=== PATIENT | female | born 1960 | race Caucasian/White ===

== ENCOUNTER → 2019-09-10 11:07 | Outpatient (CLI) | payer BC, SELFPAY | PROVIDERS: PCP Family Medicine; Visit Provider Family Medicine | DX: R42 Dizziness and giddiness (principal) | CPT/HCPCS: 93225; 93226 ==

== ENCOUNTER → 2019-10-01 12:18 | Outpatient (CLI) | payer BC, SELFPAY ==
--- NOTE | 2019-10-01 12:23 | XR_ITS ---
PROCEDURE: XR CHEST 2V CLINICAL HISTORY: tobacco user COMPARISON: CR TSP THORACIC SPINE-3V SWIMMERS from 06/17/2014 FINDINGS: The cardiomediastinal silhouette and pulmonary vascularity are within normal limits. The lungs are clear without infiltrates, suspicious nodules, or pleural effusions. There are postsurgical changes of the thoracic spine. There is kyphosis in the lower thoracic spine with a bone plate present from the left lateral approach at the T12 T11 and T10 region. A spacer device is present at the T11 position with kyphosis at that level. This is similar compared to 06/17/2014 thoracic spine film. There is a pectus excavatum deformity also similar compared to the previous exam. IMPRESSION: No acute findings. Dictated by: Sudhakar Freeman MD 10/01/2019 12:54 Sudhakar Freeman MD in [place] 10/01/2019 12:54
[2019-10-01 13:12] LABS: Basophils # 0.1 K/mm3 (0-0.2); Basophils % 0.5 % (0.1-2.0); Eosinophils # 0.1 K/mm3 (0.0-0.4); Hematocrit 39.8 % (37.0-47.0); Hemoglobin 13.2 g/dL (12.2-16.2); Lymphocytes # 2.1 K/mm3 (0.7-4.5); Lymphocytes % 19.4 % (10-50); Mean Corpuscular HGB Conc 33.2 g/dL (31.8-35.4); Mean Corpuscular Hemoglobin 31.4 pg (27.0-31.2); Mean Corpuscular Volume 94.4 fl (81-99); Mean Platelet Volume 7.7 fl (7.4-10.4); Monocytes # 0.4 K/mm3 (0.1-1.0); Neutrophils # 8.2 K/mm3 (1.8-7.8); Neutrophils % 75.1 % (37.0-80.0); Platelet Count 351 K/mm3 (142-424); Red Blood Count 4.21 M/mm3 (4.20-5.40); Red Cell Distribution Width 12.1 % (11.5-17.5); White Blood Count 10.9 K/mm3 (4.8-10.8)
[2019-10-01 14:01] LABS: Alanine Aminotransferase 16 U/L (12-78); Albumin Level 4.2 g/dl (3.5-5.0); Alkaline Phosphatase 77 U/L (38-126); Aspartate Amino Transferase 23 U/L (14-36); Bilirubin,Direct 0.1 mg/dl (0.0-0.4); Bilirubin,Indirect 0.2 mg/dL (0.0-0.9); Bilirubin,Total 0.3 mg/dl (0.2-1.3); Bilirubin,Unconjugated 0.2 mg/dL (0.0-1.1); Blood Urea Nitrogen 16 mg/dl (7-17); Calcium 9.9 mg/dl (8.4-10.2); Carbon Dioxide 30 mmol/L (22.0-30.0); Chloride 100 mmol/L (98-107); Estimated Glomerular Filt Rate 86 ml/min (>60); GFR (African American) 104 ML/MIN (>60); Glucose 92 mg/dl (74-100); Sodium 137 mmol/L (136-145); Total Protein,Serum 6.9 g/dl (6.3-8.2)
[2019-10-01 14:13] LABS: NT Pro Brain Natriuretic Pep. 121 pg/mL (0-125)
[2019-10-01 14:19] LABS: Free T4 (Free Thyroxine) 1.08 ng/dl (0.78-2.19)
[2019-10-01 14:34] LABS: Thyroid Stimulating Hormone 0.75 uIU/mL (0.465-4.68)
== END ==
PROVIDERS: PCP Family Medicine; Visit Provider Internal Medicine
DX: R42 Dizziness and giddiness (principal); R55 Syncope and collapse; R00.0 Tachycardia, unspecified; F17.200 Nicotine dependence, unspecified, uncomplicated
CPT/HCPCS: 36415; 71046; 80048; 80076; 83880; 84439; 84443; 85025

== ENCOUNTER → 2019-10-08 06:33 | Outpatient (CLI) | payer BC, SELFPAY ==
--- NOTE | 2019-10-08 06:34 | CA_ITS ---
APPROVED REPORT Exam: Pharmacologic Technologist: Chanel Taylor Ht: 5 ft 6 in Wt: 112 lbs BSA: 1.56 m2 HR: 51 bpm BP: 101/56 mmHg Medical History Medications: BisOPROL,,,,, DulOtetine,,,,, Stress Test Details Test: LEXISCAN HR Resting HR: 54 bpm Max Heart Rate (APMHR): 163 bpm Max HR Achieved: 124 bpm Target HR (85% APMHR): 138 bpm % of APMHR: 76 Recovery HR: 102 bpm BP Resting BP: 101.0/56.0 mmHg Max BP: 108.0/50.0 mmHg Recovery BP: 101.0/54.0 mmHg ECG Clinical Reason for Termination: Completed Protocol Exercise duration: 03:59 min Highest Stage Achieved: Stress ECG Conclusion Resting ECG: Normal sinus rhythm Symptoms: No chest pain Arrhythmias/Ectopy: None ST-T Changes: < 1.[address] segment changes Conclusion: Non-diagnostic Lexiscan stress test. Patient received the infusion without chest pain, ST segment changes or arrhythmias. See the nuclear report for further information. Test Summary REST 05:32 . . 54 . 101/ 56 . . Stage 1 . . . . . . . Myoview Injected Stage 1 01:00 . . 109 . . . . Stage 2 01:00 . . 120 . 93/ 56 . . Stage 3 01:00 . . 115 . 98/ 56 . . Stage 4 00:59 . . 110 . 98/ 53 . Stop exercise at 03:59 RECOVERY 01:00 . . 105 . . . . RECOVERY 02:00 . . 106 . . . . RECOVERY 03:00 . . 100 . 108/ 50 . . RECOVERY 04:00 . . 94 . 108/ 50 . . RECOVERY 05:00 . . 91 . 108/ 50 . . RECOVERY 05:40 . . 100 . 101/ 54 . . Electronically signed by : Toby Sanchez, 10/08/2019 18:24:16
--- NOTE | 2019-10-08 06:34 | CA_ITS ---
APPROVED REPORT EXAM: Comprehensive 2D, Doppler, and color-flow Echocardiogram Mat Machine Operator: Ariadna Gray RT(R) Ht: 5 ft 6 in Wt: 113lbs BSA: 1.57 BP: 99/69 mmHg Indications: smoker, fatigue, dizziness, syncope 2D Dimensions LVOT 1.54 cm (M/F) 1.5-2.5 M-Mode Dimensions RVDd 2.32 cm (0.9-2.6) LVDd 3.73 cm (3.5-5.7) LVDs 2.49 cm (3.5-5.7) IVSd 0.81 cm (0.6-1.1) PWd 0.74 cm (0.6-1.1) EF (Teich) 62.70% FS 33.20% EDV (Teich) 59.30 mL ESV (Teich) 22.10 mL LV Diastology E/A Ratio 2.92 Mitral Valve MV A Velocity 32.00 (40-130 cm/s) Left Ventricle Left atrium is normal size, left ventricle is normal size, there is no concentric left ventricular hypertrophy, visually estimated ejection fraction 55% with no regional wall motion abnormality. Diastolic parameters are within normal range. Right Ventricle Right atrium and right ventricular normal size and contractility. Aortic Valve Aortic valve is minimally thickened and fibrosed. There is no aortic stenosis or aortic insufficiency. Mitral Valve Mitral valve is grossly normal, there is mild mitral regurgitation. Tricuspid Valve Tricuspid valve is grossly normal, there is mild tricuspid regurgitation, tricuspid regurgitation jet velocity is inadequate for calculation of the right ventricular systolic pressure. Pulmonic Valve Pulmonic valve is poorly visualized. Great Vessels Aortic root is normal size. Pericardium No significant pericardial effusion noted. Conclusion 1. Normal left ventricular size, preserved left ventricular systolic function, visually estimated ejection fraction 55% with no regional wall motion abnormality, diastolic parameters are within normal range. 2. Mild mitral and tricuspid regurgitation. 3. No significant pericardial effusion noted. Electronically signed by : Toby Sanchez, 10/08/2019 18:53:01
--- NOTE | 2019-10-08 06:34 | NM_ITS ---
APPROVED REPORT Exam: Nuclear Stress Test Indication: palpitations..fatigue..dizziness Patient Location: Outpatient Stress Tech: Chanel Taylor MI Tech:Gloria TaborNILTON RT(R)(N) Ht: 5 ft 6 in Wt: 112 lbs Bra Size: 34c HR: 51 bpm BP: 101/56 mmHg BSA: 1.56 m2 BMI: 18.0 History: palpitations..fatigue..dizziness Procedure: Patient received a 0.4 mg of intravenous Lexiscan, resting heart rate 51 bpm, resting blood pressure 101/56 mmHg, with Lexiscan maximum heart rate achived was 120 bpm which is Less than 85 % of the maximum predicted heart rate and blood pressure was 93/56 mmHg. With Lexiscan, patient denied any complaint of chest pain. Electrocardiogram Resting electrocardiogram showed sinus rhythm, with Lexiscan there is less than 1.[address] segment depression noted from the baseline EKG. The EKG portion of the Lexiscan Myoview is nondiagnostic. Cardiac Stress and Resting SPECT Images: Cardiac Stress and Resting SPECT images were obtained using technetium 99m Myoview 32.4 mCi stress and 10.24 mCi at rest. Gated SPECT for the analysis of segmental wall motion and calculation of ejection fraction also done. Cardiac stress and resting SPECT images show mild fixed defect in the anterior wall with normal contractility gated SPECT is likely secondary to soft tissue attenuation, no reversible ischemia seen. Computer derived ejection fraction is over 65% with no regional wall motion abnormality, right ventricle is normal size and contractility. Conclusion: 1. The EKG portion of the Lexiscan Myoview is nondiagnostic. 2. No scintigraphic evidence of reversible ischemia seen, computer derived ejection fraction is over 65% with no regional wall motion abnormality, right ventricle is normal size and contractility. 3. Likely normal Lexiscan Myoview study. Electronically signed by : Toby Sanchez, 10/08/2019 18:28:28
--- NOTE | 2019-10-08 09:39 | HMH.ITSHM ---
Current Home Medications as stated by this patient Angely Newman or healthcare sales representative. [] dorista
== END ==
PROVIDERS: PCP Family Medicine; Visit Provider Urology
DX: R00.0 Tachycardia, unspecified (principal); R42 Dizziness and giddiness; R55 Syncope and collapse; R94.31 Abnormal electrocardiogram [ECG] [EKG]
CPT/HCPCS: 78452; 93017; 93306; A9502; J2785

== ENCOUNTER → 2019-10-12 10:54 | Outpatient (CLI) | payer BC, SELFPAY | PROVIDERS: PCP Family Medicine; Visit Provider Nurse Practitioner Family | DX: F17.200 Nicotine dependence, unspecified, uncomplicated (principal) | CPT/HCPCS: 94060; 94726; 94729 ==

== ENCOUNTER → 2019-12-03 08:28 | Outpatient (CLI) | payer BC, SELFPAY ==
--- NOTE | 2019-12-03 08:28 | CT_ITS ---
PROCEDURE: CT CHEST WO CON CLINICAL INDICATION: pectus excavatum Chest pain, dizziness COMPARISON: MR TSW/O MRI-T-SPINE W/O from 12/19/2012 CR TSP THORACIC SPINE-3V SWIMMERS from 06/17/2014 TECHNIQUE: Axial images obtained with sagittal and coronal reformats. All CT scans at the facility use one or more dose reduction, viz: automated exposure control, ma/kV adjustment per patient size (including targeted exams where dose is matched to indication, i.e. head), or iterative reconstruction technique. FINDINGS: HEART AND MEDIASTINAL STRUCTURES: There is a pectus excavatum deformity. There is mild thickening of the pericardium. No mediastinal or hilar mass or adenopathy. LUNGS AND PLEURAL SPACES: COPD. Old granulomatous disease. There are 2 different 3 mm noncalcified nodules in the right middle lobe. 5 mm noncalcified nodule right lower lobe anteriorly. 5 mm noncalcified nodule right lower lobe posterior laterally. Atelectatic or fibrotic changes in the right lung base with a subpleural opacity at 10 mm and could be due to an area atelectatic change or fibrosis. Six-month follow-up is suggested. There is an additional 4 mm noncalcified nodule in the right lower lobe posteriorly. 4 mm noncalcified nodule noted in the lingula with atelectatic or fibrotic changes in the lung bases. 4 mm noncalcified nodule left lower lobe laterally. Left lower lobe volume loss posteriorly with a 14 mm opacity adjacent to this region which may be related to atelectatic or fibrotic change versus developing nodule. BONY STRUCTURES: Kyphotic deformity is present at T11-T12 with an old compression fracture of T12 with kyphosis. There are postsurgical changes with a left lateral bone plate at T10-T11 and T12 with a tubular cage device noted at T11. There is a pectus deformity. Bilateral sub mammary breast implants are present. UPPER ABDOMEN: 8 mm hypodensity in the left hepatic lobe and 7 mm hypodensity in the right hepatic lobe possibly due to cysts. On the most inferior image there is an incompletely imaged 7 mm hypodensity in the right hepatic lobe just to the right of the gallbladder fossa. The left adrenal gland is slightly prominent nonspecific. ADDITIONAL FINDINGS: No other significant abnormalities. IMPRESSION: 1. Multiple noncalcified bilateral pulmonary nodules with COPD. Recommend six-month follow-up without and with contrast to confirm stability. 2. Postsurgical changes with kyphosis of the lower thoracic spine. 3. Pectus excavatum. 4. At least 2 and possibly 3 hypodensities of the liver possibly due to cysts. Stability may be confirmed with follow-up. Dictated by: Sudhakar Freeman MD 12/03/2019 10:51 Sudhakar Freeman MD in [place] 12/03/2019 10:51
== END ==
PROVIDERS: PCP Family Medicine; Visit Provider Physician Assistant
DX: Q67.6 Pectus excavatum (principal)
CPT/HCPCS: 71250

== ENCOUNTER → 2020-12-01 12:09 | Outpatient (CLI) | payer BC, SELFPAY ==
--- NOTE | 2020-12-01 12:17 | XR_ITS ---
PROCEDURE: XR CHEST PORTABLE CLINICAL HISTORY: COVID OUTPATIENT COMPARISON: CR XR CHEST 2V from 10/01/[address] CHEST WO CON from 12/03/2019 FINDINGS: Cardiomediastinal silhouette is not enlarged. Mediastinal structures are midline. No definite nodules are noted. There is trace blunting of the left costophrenic angle suggesting atelectasis or a small tiny trace left pleural effusion there has been a left rib resection. IMPRESSION: Trace left pleural fluid or atelectasis. Otherwise stable chest radiograph. Dictated by: Halima Novak MD 12/01/2020 14:58 Halima Novak MD in [place] 12/01/2020 14:58
[2020-12-01 12:39] LABS: Basophils # 0.1 K/mm3 (0-0.2); Basophils % 0.7 % (0.1-2.0); Eosinophils # 0.3 K/mm3 (0.0-0.4); Eosinophils % 2.7 % (0.1-12.0); Hematocrit 41.6 % (37.0-47.0); Hemoglobin 13.6 g/dL (12.2-16.2); Lymphocytes # 2.1 K/mm3 (0.7-4.5); Lymphocytes % 22.8 % (10-50); Mean Corpuscular HGB Conc 32.6 g/dL (31.8-35.4); Mean Corpuscular Hemoglobin 30.9 pg (27.0-31.2); Mean Corpuscular Volume 94.9 fl (81-99); Monocytes # 0.5 K/mm3 (0.1-1.0); Monocytes % 5.6 % (1.7-9.3); Neutrophils # 6.2 K/mm3 (1.8-7.8); Neutrophils % 68.2 % (37.0-80.0); Platelet Count 349 K/mm3 (142-424); Red Blood Count 4.38 M/mm3 (4.20-5.40); Red Cell Distribution Width 12.1 % (11.5-17.5); White Blood Count 9.1 K/mm3 (4.8-10.8)
== END ==
PROVIDERS: PCP Family Medicine; Visit Provider Nurse Practitioner
DX: Z20.822 Contact with and (suspected) exposure to COVID-19 (principal)
CPT/HCPCS: 36415; 71045; 85025; 87275; 87276; C9803; U0003; U0005

== ENCOUNTER → 2021-03-23 14:14 | Outpatient (CLI) | payer BC, SELFPAY ==
--- NOTE | 2021-03-23 14:21 | XR_ITS ---
FINAL REPORT CLINICAL HISTORY: COVID OUT-PATIENT cough. soa COMPARISON: December 01, 2020 FINDINGS: The heart size is normal. The mediastinum is normal. There is mild right lung base atelectasis. There are no pleural effusions. There is no pneumothorax. There is postoperative change in the lower thoracic spine. There is mild levoscoliosis. IMPRESSION: Mild right lung base atelectasis. Reviewed, Interpreted and Dictated by Edwin Zarco III, MD Transcribed by Nba Sanchez Authenticated by Edwin Zarco III, MD on 03/23/2021 03:21:54 PM [facility]
[2021-03-23 14:46] LABS: Adenovirus,PCR Not Detected (NotDetected); Bordetella Pertussis Not Detected (NotDetected); Chlamydophila Pneumoniae, PCR Not Detected (NotDetected); Coronavirus 19, PCR Not Detected (NotDetected); Coronavirus 229E Not Detected (NotDetected); Coronavirus NL63 Not Detected (NotDetected); Coronavirus OC43 Not Detected (NotDetected); Coronovirus HKU1,PCR Not Detected (NotDetected); Human Metapneumovirus Not Detected (NotDetected); Influenza A, PCR Not Detected (NotDetected); Influenza AH1, 2009 Not Detected (NotDetected); Influenza AH1, PCR Not Detected (NotDetected); Influenza AH3,PCR Not Detected (NotDetected); Influenza B, PCR Not Detected (NotDetected); Mycoplasma Pneumoniae, PCR Not Detected (NotDetected); Parainfluenza 1, PCR Not Detected (NotDetected); Parainfluenza 2, PCR Not Detected (NotDetected); Parainfluenza 3, PCR Not Detected (NotDetected); Parainfluenza 4, PCR Not Detected (NotDetected); Respiratory Syncytial Virus Not Detected (NotDetected); Rhinovirus/Enterovirus Not Detected (NotDetected)
[2021-03-23 14:55] LABS: Basophils # 0.2 K/mm3 (0-0.2); Basophils % 2.4 % (0.1-2.0); Eosinophils # 0.3 K/mm3 (0.0-0.4); Hemoglobin 12.9 g/dL (12.2-16.2); Lymphocytes # 2.3 K/mm3 (0.7-4.5); Lymphocytes % 31.8 % (10-50); Mean Corpuscular HGB Conc 32.3 g/dL (31.8-35.4); Mean Corpuscular Hemoglobin 31.3 pg (27.0-31.2); Mean Platelet Volume 7.5 fl (7.4-10.4); Monocytes # 0.4 K/mm3 (0.1-1.0); Monocytes % 4.8 % (1.7-9.3); Neutrophils # 4.1 K/mm3 (1.8-7.8); Platelet Count 494 K/mm3 (142-424); Red Blood Count 4.13 M/mm3 (4.20-5.40); Red Cell Distribution Width 12.9 % (11.5-17.5); White Blood Count 7.2 K/mm3 (4.8-10.8)
== END ==
PROVIDERS: PCP Family Medicine; Visit Provider Family Medicine
DX: Z20.822 Contact with and (suspected) exposure to COVID-19 (principal)
CPT/HCPCS: 36415; 71045; 85025; 87581; 87632; 87798; C9803; U0003; U0005

== ENCOUNTER 2021-07-04 10:59 | Emergency (ER) | payer BC, SELFPAY ==
--- NOTE | 2021-07-04 10:59 | ECG_ITS ---
APPROVED REPORT Exam: Resting ECG HR:52 bpm ECG Measurements Heart Rate 52 AXES WV 182 P 71 QRSd 75 QRS 13 QT 401 T 63 QTc 381 Conclusion SINUS BRADYCARDIA BORDERLINE ECG UNCONFIRMED REPORT Electronically signed by : Carlos Robles MD 07/06/2021 09:41:04
[2021-07-04 11:00] VITALS: BP 102/57; PULSE 54; RESP 18; TEMP 36.6; O2SAT 97; BMI 18.1
--- NOTE | 2021-07-04 11:07 | XR_ITS ---
PROCEDURE INFORMATION: Exam: XR Chest Exam date and time: 07/04/2021 11:04 AM Age: 61 years old Clinical indication: Pain; Chest pressure; Prior surgery; Surgery date: 6+ months; Additional info: Chest pain TECHNIQUE: Imaging protocol: XR of the chest. Views: 2 views. COMPARISON: CR XR CHEST PORTABLE 03/23/2021 2:28 PM FINDINGS: Lungs: Hyperinflation and mild interstitial prominence. No acute airspace disease. Pleural spaces: No pleural effusion. Heart/Mediastinum: No cardiomegaly. Bones/joints: Stable postoperative change in the spine. Pectus excavatum deformity of the anterior chest wall. IMPRESSION: No acute airspace or pleural disease.
--- NOTE | 2021-07-04 11:10 | PC.NURSE ---
no nitro given at this time due to pt low bp and pt refusing to take at this time
--- NOTE | 2021-07-04 11:11 | PC.NURSE ---
Pt to rad
[2021-07-04 11:17] LABS: Basophils # 0.1 K/mm3 (0-0.2); Basophils % 1.2 % (0.1-2.0); Eosinophils # 0.2 K/mm3 (0.0-0.4); Hematocrit 42.6 % (37.0-47.0); Hemoglobin 13.8 g/dL (12.2-16.2); Lymphocytes # 2.5 K/mm3 (0.7-4.5); Lymphocytes % 33.3 % (10-50); Mean Corpuscular HGB Conc 32.5 g/dL (31.8-35.4); Mean Corpuscular Hemoglobin 31.8 pg (27.0-31.2); Mean Corpuscular Volume 97.8 fl (81-99); Mean Platelet Volume 7.9 fl (7.4-10.4); Monocytes # 0.4 K/mm3 (0.1-1.0); Monocytes % 4.9 % (1.7-9.3); Neutrophils # 4.3 K/mm3 (1.8-7.8); Neutrophils % 57.5 % (37.0-80.0); Platelet Count 392 K/mm3 (142-424); Red Blood Count 4.35 M/mm3 (4.20-5.40); Red Cell Distribution Width 12.4 % (11.5-17.5); White Blood Count 7.5 K/mm3 (4.8-10.8)
[2021-07-04 11:23] LABS: Chloride 105 mmol/L (98-107); Sodium 141 mmol/L (136-145)
[2021-07-04 11:24] LABS: Potassium 4.5 mmoL/L (3.5-5.1)
[2021-07-04 11:27] LABS: Anion Gap 9.5 mEq/L (5-15); Blood Urea Nitrogen 16 mg/dl (7-17); Calcium 9.4 mg/dl (8.4-10.2); Carbon Dioxide 31 mmol/L (22.0-30.0); Creatinine Clearance Estimated 54 mL/min (50-200); Estimated Glomerular Filt Rate 64 ml/min (>60); GFR (African American) 78 ML/MIN (>60); Glucose 85 mg/dl (74-100)
[2021-07-04 11:30] VITALS: BP 99/55; PULSE 52; O2SAT 99
--- NOTE | 2021-07-04 11:36 | PC.NURSE ---
ED MD at
--- NOTE | 2021-07-04 11:42 | HMH.EDGENADL ---
ED Disposition Clinical Impression: Atypical chest pain Disposition: Home, Self-Care Condition on Discharge: Good Instructions: DI for Atypical Chest Pain Additional Instructions: Additional instructions for CHEST PAIN: See your physician as soon as possible for further evaluation. Return immediately if worsening chest pain, vomiting, shortness of breath, fever, coughing of blood. Referrals: Filomena Combs MD [Primary Care Provider] - - Critical Care Critical Care Time: No Attestation: On 07/04/21, the high probability of a clinically significant, sudden or life threatening deterioration of the following system(s) required my full and direct attention, intervention and personal management. The time I documented below is in addition to time spent performing reported procedures but includes the following listed in this critical care notation. Medical Decision Making - Medical Records Medical records reviewed: Yes: I reviewed the patient's medical records. MR Comment: Reviewed most recent cardiology clinic visit 11/19/2019. Reviewed most recent stress test and echocardiogram results. - Jeff Inquiry Pt receiving controlled substance: No Vital Signs: 07/04/21 11:00 07/04/21 11:30 07/04/21 12:45 Temperature 97.8 F Temperature Source Oral Pulse Rate 52 L 51 L Pulse Rate [Left Radial] 54 L Respiratory Rate 18 Blood Pressure 99/55 L 102/68 L Blood Pressure [Right Arm] 102/57 L Blood Pressure Mean 71 79 Blood Pressure Mean [Right Arm] 72 Blood Pressure Source Blood Pressure Source [Right Arm] Automatic Cuff Blood Pressure Position Blood Pressure Position [Right Arm] Sitting 02 Sat by Pulse Oximetry 97 99 99 Oxygen Delivery Method Room Air 07/04/21 13:00 07/04/21 14:02 07/04/21 15:57 Temperature 98.0 F Temperature Source Pulse Rate 57 L 55 L 52 L Pulse Rate [Left Radial] Respiratory Rate 18 Blood Pressure 91/53 L 118/55 L 115/48 L Blood Pressure [Right Arm] Blood Pressure Mean 65 76 Blood Pressure Mean [Right Arm] Blood Pressure Source Automatic Cuff Blood Pressure Source [Right Arm] Blood Pressure Position Sitting Blood Pressure Position [Right Arm] 02 Sat by Pulse Oximetry 98 98 Oxygen Delivery Method Room Air - Lab Data Lab Results 07/04/21 10:59: WBC 7.5, RBC 4.35, Hgb 13.8, Hct 42.6, MCV 97.8, MCH 31.8 H, MCHC 32.5, RDW 12.4, Plt Count 392, MPV 7.9, Neut % (Auto) 57.5, Lymph % (Auto) 33.3, Ripley % (Auto) 4.9, Eos % (Auto) 3.0, Baso % (Auto) 1.2, Neut # (Auto) 4.3, Lymph # (Auto) 2.5, Ripley # (Auto) 0.4, Eos # (Auto) 0.2, Baso # (Auto) 0.1 07/04/21 10:59: Sodium 141, Potassium 4.5, Chloride 105, Carbon Dioxide 31 H, Anion Gap 9.5, BUN 16, Creatinine 0.90, Estimated Creat Clear 54, Estimated GFR 64, Est GFR ( Amer) 78, Glucose 85, Calcium 9.4, Troponin I < 0.01 07/04/21 14:30: Troponin I < 0.01 Result diagrams: 07/04/21 10:59 07/04/21 10:59 Orders (Tests/Meds): ED MEDICATIONS Discontinued Medications Generic Name Dose Route Start Last Admin Trade Name Freq PRN Reason Stop Dose Admin Aspirin 324 mg 07/04/21 11:07 07/04/21 11:10 Aspirin 81mg Chewable Tablet PO 07/04/21 11:08 324 mg ONCE ONE Administration - Radiology Data #1 Image(s): Chest Image Reviewed: Yes I reviewed the patient's radiology image, Yes I have reviewed radiologist's interpretation PROCEDURE INFORMATION: Exam: XR Chest Exam date and time: 07/04/2021 11:04 AM Age: 61 years old Clinical indication: Pain; Chest pressure; Prior surgery; Surgery date: 6+ months; Additional info: Chest pain TECHNIQUE: Imaging protocol: XR of the chest. Views: 2 views. COMPARISON: CR XR CHEST PORTABLE 03/23/2021 2:28 PM FINDINGS: Lungs: Hyperinflation and mild interstitial prominence. No acute airspace disease. Pleural spaces: No pleural effusion. Heart/Mediastinum: No cardiomegaly. Bones/joints: Stable postoperati
[2021-07-04 11:45] LABS: Troponin I < 0.01 ng/ml (0.00-0.034)
--- NOTE | 2021-07-04 12:22 | PC.NURSE ---
FAMILY AT [facility]
[2021-07-04 12:45] VITALS: BP 102/68; PULSE 51; O2SAT 99
[2021-07-04 13:00] VITALS: BP 91/53; PULSE 57; O2SAT 98
--- NOTE | 2021-07-04 13:21 | PC.NURSE ---
2nd troponin sent to lab
[2021-07-04 14:02] VITALS: BP 118/55; PULSE 55; O2SAT 98
[2021-07-04 15:10] LABS: Troponin I < 0.01 ng/ml (0.00-0.034)
[2021-07-04 15:57] VITALS: BP 115/48; PULSE 52; RESP 18; TEMP 36.7; O2SAT 99
== END 2021-07-04 15:59 | disposition home or self-care (01) ==
PROVIDERS: Emergency Provider Emergency Medicine; PCP Family Medicine
DX: R07.89 Other chest pain (principal); R42 Dizziness and giddiness; Z72.0 Tobacco use; R00.2 Palpitations
CPT/HCPCS: 36415; 71046; 80048; 84484; 85025; 93005; 99283

== ENCOUNTER → 2021-07-24 16:24 | Outpatient (CLI) | payer BC, SELFPAY ==
--- NOTE | 2021-07-24 | XR_ITS ---
PROCEDURE INFORMATION: Exam: XR Right Hip Exam date and time: 07/24/2021 4:32 PM Age: 61 years old Clinical indication: Hip pain; Right hip; Additional info: RT hip pain TECHNIQUE: Imaging protocol: Radiologic exam of the Right hip. Views: 2 or 3 views hip with pelvis when performed. COMPARISON: PTV US PELVIS-TRANSVAGINAL ONLY 04/21/2016 1:08 PM FINDINGS: Bones/joints: Degenerative changes in both hips. There is no evidence of acute fracture.There is no evidence of malalignment or dislocation. Soft tissues: Unremarkable. IMPRESSION: There is no evidence of acute fracture.There is no evidence of malalignment or dislocation.
--- NOTE | 2021-07-24 | XR_ITS ---
PROCEDURE INFORMATION: Exam: XR Left Hip Exam date and time: 07/24/2021 4:32 PM Age: 61 years old Clinical indication: Hip pain; Left hip; Additional info: Hip pain. Pelvis on RT hip order TECHNIQUE: Imaging protocol: Radiologic exam of the Left hip. Views: 2 or 3 views hip with pelvis when performed. COMPARISON: PTV US PELVIS-TRANSVAGINAL ONLY 04/21/2016 1:08 PM FINDINGS: Bones/joints: Degenerative changes of the left hip. There is no evidence of acute fracture.There is no evidence of malalignment or dislocation. Soft tissues: Unremarkable. IMPRESSION: There is no evidence of acute fracture.There is no evidence of malalignment or dislocation.
== END ==
PROVIDERS: PCP Family Medicine; Visit Provider Family Medicine
DX: M25.552 Pain in left hip (principal); M25.551 Pain in right hip
CPT/HCPCS: 73502

== ENCOUNTER → 2021-08-19 16:37 | Outpatient (CLI) | payer BC, SELFPAY | LOC: RT 16:38 | PROVIDERS: PCP Family Medicine; Visit Provider Family Medicine | DX: I47.1 Supraventricular tachycardia (principal) | CPT/HCPCS: 93225; 93226 ==

== ENCOUNTER 2021-12-20 21:36 | Emergency (ER) | payer BC, SELFPAY ==
[2021-12-20 21:37] VITALS: BP 113/84; PULSE 86; RESP 16; TEMP 36.6; O2SAT 98; BMI 18.6
--- NOTE | 2021-12-20 21:53 | PC.NURSE ---
Dr. Love at
--- NOTE | 2021-12-20 21:59 | CT_ITS ---
PROCEDURE INFORMATION: Exam: CT Abdomen And Pelvis With Contrast Exam date and time: 12/20/2021 11:35 PM Age: 61 years old Clinical indication: Abdominal pain; Flank; Right; Prior surgery; Surgery date: 6+ months; Surgery type: Mid back surgery , tubal ligation, hernia; Additional info: Flank pain RT TECHNIQUE: Imaging protocol: Computed tomography of the abdomen and pelvis with contrast. Radiation optimization: All CT scans at this facility use at least one of these dose optimization techniques: automated exposure control; mA and/or kV adjustment per patient size (includes targeted exams where dose is matched to clinical indication); or iterative reconstruction. Contrast material: ISOVUE; Contrast volume: 75 ml; Contrast route: IV; COMPARISON: CR XR HIP LT 2-3V W/PELVIS 07/24/2021 4:32 PM FINDINGS: Heart: Trace amount of pericardial fluid. Liver: Peripherally enhancing 3 cm mass inferior aspect of the liver, most likely an exophytic hemangioma but not fully characterized here. Tiny additional hepatic simple cysts. Gallbladder and bile ducts: Normal. No calcified stones. No ductal dilation. Pancreas: Normal. No ductal dilation. Spleen: Normal. No splenomegaly. Adrenal glands: Normal. No mass. Kidneys and ureters: Normal. No hydronephrosis. Stomach and bowel: No diverticulitis. No bowel obstruction or evidence of appendicitis. Small bowel wall thickening without surrounding inflammation, which may represent incomplete distension or limited enteritis. Appendix: Normal appendix. Intraperitoneal space: Unremarkable. No free air. No significant fluid collection. Vasculature: Unremarkable. No abdominal aortic aneurysm. Lymph nodes: Unremarkable. No enlarged lymph nodes. Urinary bladder: Unremarkable as visualized. Reproductive: Unremarkable as visualized. Bones/joints: No acute fracture. Lower thoracic spinal hardware appears unremarkable. Soft tissues: Unremarkable. Other findings: No other acute pathology seen. As above. IMPRESSION: 1. No diverticulitis. No bowel obstruction or evidence of appendicitis. 2. Small bowel wall thickening without surrounding inflammation, which may represent incomplete distension or limited enteritis. 3. Peripherally enhancing 3 cm mass inferior aspect of the liver, most likely an exophytic hemangioma but not fully characterized here. Tiny additional hepatic simple cysts. 4. No other acute pathology seen. As above.
--- NOTE | 2021-12-20 22:16 | HMH.EDABDPAI ---
Discharge Plan Disposition Patient Disposition: Home, Self-Care Chief Complaint: Abdominal Pain Prescriptions Prescriptions: No Action duloxetine [Cymbalta] 30 mg capsule,delayed release(DR/EC) 30 mg PO DAILY bisoprolol fumarate 5 mg tablet See Rx Instructions .ROUTE .COMPLEX Qty: 90 3RF Dose Instruction: Take 1 tablet by mouth once daily Rx Instructions: Take 1 tablet by mouth once daily Referrals Follow up/Referrals: Filomena Combs MD [Primary Care Provider] - See instructions Clinical Impressions Clinical Impression: Acute flank pain, Hematuria Instructions Patient Instructions: DI for Flank Pain, DI for Hematuria Discharge ED Provider: Blaine Love Abdominal Pain HPI General Chief Complaint: Abdominal Pain Stated Complaint: back pain Time Seen by Provider: 12/20/21 22:16 Mode of Arrival: Ambulatory Source of Information: Patient, Relative and Medical Record Limitations: No Limitations Description of Symptoms (Recalled from ER Triage Doc. by RN): PT stated that she has middle right sided back pain that has radiated around to the pelvic area. 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 complaint: flank pain Onset (ago): day(s) Consistency: intermittent Location: R flank Severity: moderate Quality: aching Radiation: RLQ Associated symptoms: denies other symptoms Related Data Home Medications Medication Instructions Recorded Confirmed duloxetine 30 mg capsule,delayed 30 mg PO DAILY 10/01/19 11/19/19 release (Cymbalta) Previous Rx's Medication Instructions Recorded bisoprolol fumarate 5 mg tablet See Rx Instructions .Route 01/15/20 .COMPLEX #90 tabs Allergies Allergy/AdvReac Type Severity Reaction Status Date / Time No Known Allergies Allergy Unknown Uncoded 11/19/19 14:21 [facility] Medical History (Updated 12/21/21 @ 00:06 by Blaine Love MD) Abnormal EKG Dizziness Fatigue Pectus excavatum Sinus bradycardia Syncope Tachycardia Tobacco dependence syndrome Social History Smoking Status: Current some day smoker tobacco type: cigarettes alcohol intake: current substance use type: denies use current occupational status: employed Travel in the last 8 weeks: Inside the [place] household members: family housing: house ROS Obtained: Yes All systems reviewed & no additional complaints except as documented Physical Exam General General appearance: alert Head Head exam: normocephalic Eye Eye exam: Present PERRL ENT ENT exam: Present mucous membranes moist Neck Neck exam: Present trachea midline Respiratory Respiratory exam: Absent respiratory distress Cardiovascular Cardiovascular exam: Present regular rate Abdominal Exam Abdominal exam: Present soft and tenderness; Absent guarding or rebound Abdominal tenderness: Present RLQ and moderate Extremities Exam Extremities exam: Present full ROM Back Exam Back exam: Absent CVA tenderness (R) Neurological Exam Neurological exam: Present alert, oriented X3 and CN II-XII intact Psychiatric Psychiatric exam: Present normal affect Skin Skin exam: Absent rash Medical Decision Making Medical Records Medical records reviewed: Yes I reviewed the patient's medical records. Jeff Inquiry Pt receiving controlled substance: No Vital Signs: 12/20/21 21:37 12/20/21 23:15 Temperature 97.9 F Temperature Source Oral Pulse Rate 57 L Pulse Rate [Left] 86 Respiratory Rate 16 Blood Pressure 100/52 L Blood Pressure [Right Arm] 113/84 Blood Pressure Mean [Right Arm] 93 02 Sat by Pulse Oximetry 98 99 Oxygen Delivery Method Room Air Room Air Lab Data Lab results reviewed: Yes I reviewed the patient's lab results. Lab Results 12/20/21 20:10: WBC 8.0, RBC 4.10 L, Hgb 12.8, Hct 39.0, MCV
[2021-12-20 22:29] LABS: Alanine Aminotransferase 17 U/L (12-78); Albumin Level 4.3 g/dl (3.5-5.0); Albumin/Globulin Ratio 1.7 (1.1-1.8); Alkaline Phosphatase 71 U/L (38-126); Anion Gap 13.9 mEq/L (5-15); Aspartate Amino Transferase 25 U/L (14-36); Bilirubin,Total 0.2 mg/dl (0.2-1.3); Blood Urea Nitrogen 14 mg/dl (7-17); Calcium 9.7 mg/dl (8.4-10.2); Carbon Dioxide 30 mmol/L (22.0-30.0); Chloride 103 mmol/L (98-107); Creatinine Clearance Estimated 49 mL/min (50-200); Estimated Glomerular Filt Rate 57 ml/min (>60); GFR (African American) 69 ML/MIN (>60); Globulin 2.6 g/dL (1.3-3.2); Glucose 94 mg/dl (74-100); Potassium 3.9 mmoL/L (3.5-5.1); Sodium 143 mmol/L (136-145); Total Protein,Serum 6.9 g/dl (6.3-8.2)
[2021-12-20 23:15] VITALS: BP 100/52; PULSE 57; O2SAT 99
--- NOTE | 2021-12-20 23:15 | PC.NURSE ---
Rechecked pt condition. No needs or complaints at this time.
[2021-12-20 23:34] LABS: Microscopic, Urine URINE MICROSCOPIC (MICROSCOPIC)
[2021-12-20 23:36] LABS: Appearance,Urine CLEAR (Clear); Bilirubin,Urine Negative (Negative); Blood, Urine 3+ (Negative); Color,Urine YELLOW (Yellow); Glucose,Urine (UA) Negative (Negative); Ketones,Urine TRACE (Negative); Leukocyte Esterase,Urine Negative (Negative); Nitrate,Urine Negative (Negative); PH,Urine 6.5 (5.0-8.5); Protein,Urine Negative (Negative); Specific Gravity, Urine 1.025 (1.005-1.030)
[2021-12-20 23:38] LABS: RBC,Urine 20-50 #/hpf (0-3)
[2021-12-20 23:38] LABS: Basophils # 0.2 K/mm3 (0-0.2); Basophils % 1.8 % (0.1-2.0); Eosinophils # 0.2 K/mm3 (0.0-0.4); Eosinophils % 2.6 % (0.1-12.0); Hemoglobin 12.8 g/dL (12.2-16.2); Lymphocytes # 3.4 K/mm3 (0.7-4.5); Lymphocytes % 42.6 % (10-50); Mean Corpuscular HGB Conc 32.8 g/dL (31.8-35.4); Mean Corpuscular Hemoglobin 31.1 pg (27.0-31.2); Mean Corpuscular Volume 95.1 fl (81-99); Mean Platelet Volume 8.1 fl (7.4-10.4); Monocytes # 0.4 K/mm3 (0.1-1.0); Monocytes % 5.3 % (1.7-9.3); Neutrophils # 3.8 K/mm3 (1.8-7.8); Neutrophils % 47.7 % (37.0-80.0); Platelet Count 445 K/mm3 (142-424)
[2021-12-21 00:24] VITALS: BP 106/57; PULSE 69; RESP 16; TEMP 36.7; O2SAT 97
== END 2021-12-21 00:26 | disposition home or self-care (01) ==
PROVIDERS: Emergency Provider Emergency Medicine; PCP Family Medicine
DX: R31.9 Hematuria, unspecified (principal); R10.9 Unspecified abdominal pain; Z79.899 Other long term (current) drug therapy
CPT/HCPCS: 74177; 80053; 81001; 85025; 87086; 96374; 99284; Q9967

== ENCOUNTER → 2022-02-08 14:28 | Outpatient (CLI) | payer BC, SELFPAY ==
--- NOTE | 2022-02-08 14:34 | MM_ITS ---
PROCEDURE INFORMATION: Exam: MG Bilateral Screening 3D Mammography Exam date and time: 02/08/2022 2:26 PM Age: 62 years old Clinical indication: Screening. Her maternal grandmother had breast cancer. TECHNIQUE: Imaging protocol: Bilateral Screening tomosynthesis and 2D mammography including computer-aided detection (CAD) when performed. COMPARISON: 1. MG DMSI DIG MAMM-SCREEN IMPLANT W/CAD 05/12/2016 4:44 PM 2. MG DIGMAMMS MAMMOGRAM SCREEN-INTERNETWORKING TECHNICIAN N/C 03/21/2007 1:23 PM 3. MG DIGMAMMS MAMMOGRAM SCREEN-INTERNETWORKING TECHNICIAN N/C 06/22/2004 1:23 PM FINDINGS: MAMMOGRAPHY: Breast composition: There are scattered areas of fibroglandular density. Mass: None. Architectural distortion: None. Calcifications: No suspicious calcifications. Asymmetric density: None. Skin thickening: None. Axillary adenopathy: None. Implants: Prepectoral saline implants. IMPRESSION: No mammographic evidence of malignancy. Annual screening is recommended unless otherwise clinically indicated. ASSESSMENT: BI-RADS Category 1: Negative
== END ==
PROVIDERS: PCP Family Medicine; Visit Provider Family Medicine
DX: Z12.31 Encounter for screening mammogram for malignant neoplasm of breast (principal)
CPT/HCPCS: 77063; 77067

== ENCOUNTER 2022-03-06 13:46 | Emergency (ER) | payer BC, SELFPAY ==
--- NOTE | 2022-03-06 15:08 | EXP.UTC ---
Discharge Plan Disposition Patient Disposition: Home, Self-Care Condition: Good Prescriptions Prescriptions: New prednisone 10 mg tablet 10 mg PO BID 3 Days Qty: 6 0RF azithromycin [Zithromax] 250 mg tablet 250 mg PO UD DOSE PK Qty: 6 0RF Rx Instructions: Take two (2) tablets today, then one (1) tablet days #2 thru #5 benzonatate [benzonatate] 100 mg capsule 100 mg PO TIDP PRN (Reason: Cough) Qty: 30 0RF No Action duloxetine [Cymbalta] 30 mg capsule,delayed release(DR/EC) 30 mg PO DAILY Referrals Follow up/Referrals: Filomena Combs MD [Primary Care Provider] - See instructions Activity Restrictions/Add. Instructions Additional Instructions/Restrictions: Drink plenty of fluids. Take tylenol or ibuprofen for pain or fever. Take the medications as directed. Follow up with your regular doctor. GO TO THE ER FOR ANY WORSENING SYMPTOMS Clinical Impressions Clinical Impression: Sinusitis, Acute viral syndrome Instructions Patient Instructions: DI for Sinusitis, DI for Viral Syndrome Discharge ED Provider: Reggie Monteiro [facility] General Stated complaint: ear and throat pain,low grade fever Time Seen by Provider: 03/06/22 15:08 History of Present Illness Provider Complaint: She states that for the past 2 days she has had low grade fever, chills, body aches, sinus congestion, and a dry cough. Related Data Home Medications Medication Instructions Recorded Confirmed duloxetine 30 mg capsule,delayed 30 mg PO DAILY . 10/01/19 03/06/22 release (Cymbalta) Previous Rx's Medication Instructions Recorded azithromycin 250 mg tablet 250 mg PO UD DOSE PK #6 tabs 03/06/22 (Zithromax) benzonatate 100 mg capsule 100 mg PO TIDP PRN Cough #30 caps 03/06/22 prednisone 10 mg tablet 10 mg PO BID 3 days #6 tabs 03/06/22 Allergies Allergy/AdvReac Type Severity Reaction Status Date / Time No Known Allergies Allergy Unknown Uncoded 03/06/22 15:30 [facility] Disclaimer: The information contained in this section may have been updated after the patient was seen, as this information can be updated by other users. Medical History Abnormal EKG Dizziness Fatigue Pectus excavatum Sinus bradycardia Syncope Tachycardia Tobacco dependence syndrome Social History Smoking Status: Current some day smoker tobacco type: cigarettes alcohol intake: current substance use type: denies use current occupational status: employed Travel in the last 8 weeks: Inside the [place] household members: family housing: house ROS Obtained: Yes All systems reviewed & no additional complaints except as documented Constitutional Constitutional: Reports chills and Reports fever(s) Eyes Eyes: Denies eye discharge ENT Ears, Nose, Mouth, and Throat: Reports as per HPI Cardiovascular Cardiovascular: Denies chest pain Respiratory Respiratory: Denies chest congestion and Reports cough Gastrointestinal Gastrointestingal: Reports nausea; Denies abdominal pain, constipation, cramping, diarrhea or vomiting Musculoskeletal Musculoskeletal: Denies arthralgias Integumentary/Breasts Skin/Breast: Denies rash Neurologic Neurologic: Denies paresthesias Physical Exam General General appearance: alert and in no apparent distress Head Head exam: atraumatic, normocephalic and normal inspection Eye Eye exam: Present normal appearance, PERRL and EOMI ENT ENT exam: Present mucous membranes moist and normal external ear exam Expanded ENT Exam TM/Canal exam: Bilateral TM: erythema and bulging Nose exam: Absent sinus tenderness Mouth exam: Present normal external inspection; Absent drooling Teeth exam: Present normal inspection Throat exam: Present tonsillar erythema, tonsillomegaly and tonsillar exudate Neck Neck exam: Present normal inspection, full ROM and trachea midline; Absen
[2022-03-06 15:15] VITALS: BP 116/74; PULSE 87; RESP 20; TEMP 37.1; O2SAT 96; BMI 19.1
[2022-03-06 15:29] LABS: UTC Strep Screen (Rapid) Negative (Negative)
[2022-03-06 15:30] LABS: UTC Influenza A Antigen Negative (Negative); UTC Influenza B Antigen Negative (Negative)
[2022-03-06 15:54] VITALS: BP 116/74; PULSE 87; RESP 20; TEMP 37.1; O2SAT 96
== END 2022-03-06 15:53 | disposition home or self-care (01) ==
PROVIDERS: Emergency Provider Nurse Practitioner Family; PCP Family Medicine
DX: J32.9 Chronic sinusitis, unspecified (principal); B34.9 Viral infection, unspecified
CPT/HCPCS: 87804; 87880; 99212; 99214; C9803; G0463; U0003; U0005

== ENCOUNTER → 2022-03-30 08:05 | Outpatient (CLI) | payer BC, SELFPAY ==
--- NOTE | 2022-03-30 08:12 | XR_ITS ---
FINAL REPORT TECHNIQUE: Bone densitometry calculations of the lumbar spine and left hip were obtained. CLINICAL HISTORY: osteopenia FINDINGS: DEXA BONE DENSITY AXIAL SKELETON Using L1-4, the bone mineral density of the spine is 1.067 g/cm2, corresponding to T-score of 0.2. Using the left hip, the bone mineral density of the total hip is 0.651 g/cm2, corresponding to a T-score of -2.4. NOTE: T-score: Standard deviation compared with peak bone mass of young adult mean. *Following the recommendations of the International Society of Bone densitometry, classification of hip BMD is based on the lower of two T-scores; total hip or femoral neck. IMPRESSION: Diminished bone mineral density of the lumbar spine and left hip consistent with osteopenia. Reviewed, Interpreted and Dictated by Edwin Zarco III, MD Transcribed by Sandi Lafleur Authenticated and [facility]
--- NOTE | 2022-03-30 08:12 | CT_ITS ---
FINAL REPORT CLINICAL HISTORY: H/O NICOTINE DEPENDENCE, 62-year-old current smoker with 20 pack-year smoking history. COMPARISON: 12/03/2019 FINDINGS: Low-Dose Chest CT Axial images were obtained from the lung apex to the mid abdomen by computed tomography. Low-dose protocol was utilized. CTDI vol (mGy): 2.90 DLP (mGy-cm): 105.54 There is no axillary adenopathy. There is no hilar or mediastinal adenopathy. A pectus excavatum deformity is noted. There is a left thyroid nodule measuring 13 mm which is visually stable. The heart is proper size. There is no pericardial or pleural effusion. Lung window images demonstrate several bilateral pulmonary nodules measuring up to 6 mm. There is a 6 mm nodule in the right lower lobe on image 54. There is a 5 mm nodule in the right lower lobe on image 59. There are several other small nodules which are stable. There is scarring in the lower lobes. Limited images of the upper abdomen reveal multiple stable probable cysts or hemangiomas in both hepatic lobes. There are postoperative changes in the spine. IMPRESSION: Several stable bilateral pulmonary nodules up to 6 mm. 13 mm stable left thyroid nodule. Consider follow-up thyroid ultrasound. Lung RADS category 1. Recommend 12 month follow-up low-dose chest CT. Reviewed, Interpreted and Dictated by Edwin Zarco III, MD Transcribed by Sandi Lafleur Authenticated and [facility]
== END ==
PROVIDERS: PCP Family Medicine; Visit Provider Family Medicine
DX: M85.89 Other specified disorders of bone density and structure, multiple sites (principal); Z87.891 Personal history of nicotine dependence; Z12.2 Encounter for screening for malignant neoplasm of respiratory organs
CPT/HCPCS: 71271; 77080

== ENCOUNTER → 2022-05-07 14:07 | Outpatient (CLI) | payer BC, SELFPAY ==
--- NOTE | 2022-05-07 14:18 | US_ITS ---
FINAL REPORT TECHNIQUE: Sonographic images of the thyroid gland were obtained in the longitudinal and transverse planes. CLINICAL HISTORY: NODULE FINDINGS: The right lobe measures 1.5 x 1.5 x 5.4 cm. There is a hypoechoic mixed cystic and solid nodule in the mid thyroid measuring 1 cm consistent with TI-RADS category 3. There are several additional right thyroid nodules at are isoechoic, largest measures 9 mm. The left lobe measures 2.1 x 1.9 x 5.4 cm. There is a colloid cyst in the upper pole of the left thyroid. There is an isoechoic 2.2 nodule in the lower pole consistent with TI-RADS category 3. The isthmus measures 2mm. This is normal. IMPRESSION: Bilateral thyroid nodules consistent with TI-RADS category 3. Recommend follow-up. Reviewed, Interpreted and Dictated by Denice Sanchez MD Transcribed by Maritza Doll Authenticated and [facility]
== END ==
PROVIDERS: PCP Family Medicine; Visit Provider Family Medicine
DX: E04.1 Nontoxic single thyroid nodule (principal)
CPT/HCPCS: 76536

== ENCOUNTER 2022-05-27 07:57 | Day surgery (SDC) | payer BC, SELFPAY ==
[2022-05-24 13:59] VITALS: BMI 19.1
--- NOTE | 2022-05-27 08:14 | P.PN_ITS ---
[facility] Disclaimer: The information contained in this section may have been updated after the patient was seen, as this information can be updated by other users. Medical History Abnormal EKG Dizziness Fatigue Pectus excavatum Sinus bradycardia Syncope Tachycardia Tobacco dependence syndrome Surgical History History of back surgery Hx of bilateral oophorectomy Hx of neck surgery Family History Other Family history of CABG Social History Smoking Status: Current some day smoker tobacco type: cigarettes packs per day: 1 pack-years: 14 alcohol intake: current substance use type: denies use current occupational status: employed Travel in the last 8 weeks: Inside the [place] household members: none housing: house lives independently: Yes marital status: education level: college special jaswant needs: No agree to transfusion: No do you feel safe at home: Yes victim of physical abuse: No victim of emotional abuse: No victim of sexual abuse: No would you like helpful sources: No [facility] Anesthesia Checklist Patient Identification Patient Identification: Arm Band and Verbal (Name & ) Structural Data Admitted From: Home Planned Operative Procedure/s: Colonoscopy Consent for Planned Operative Procedure(s) Verified: Yes NPO Status Verified Time NPO: 00:00 Airway Assessment C-Spine Mobility Assessed: Yes TMJ Mobility Assessed: Yes Dentition: Good Dentition Neurological Assessment Level of Consciousness: Awake Hx Seizures: No Numbness or tingling in extremities: No Anesthesia Plan Anesthesia Risk discussed: Yes Anesthesia Plan: Verified ASA Class: II Anesthesia Type: MAC
[2022-05-27 08:19] VITALS: BP 101/56; PULSE 70; RESP 18; TEMP 36.4; O2SAT 99
== END 2022-05-27 09:10 | disposition home or self-care (01) ==
PROVIDERS: PCP Family Medicine; Visit Provider Internal Medicine Gastroenterology
PROC: 0DJD8ZZ Inspection of Lower Intestinal Tract, Via Natural or Artificial Opening Endoscopic (ICD-10-PCS; CPT 45378; principal; 2022-05-27 09:30)
DX: Z53.9 Procedure and treatment not carried out, unspecified reason (principal)

== ENCOUNTER 2022-10-04 11:08 | Emergency (ER) | payer OTHER, SELFPAY ==
--- NOTE | 2022-10-04 11:19 | XR_ITS ---
FINAL REPORT CLINICAL HISTORY: Left shoulder pain COMPARISON: None FINDINGS: LEFT SHOULDER 3 views of the left shoulder were obtained. There is no acute fracture or dislocation. There are minimal hypertrophic changes of the AC joint. Visualized joint spaces are normally aligned. Soft tissues are unremarkable. IMPRESSION: Minimal hypertrophic changes of osteoarthritis. Reviewed, Interpreted and Dictated by Demetrio Morgan MD Transcribed by Mickie Velez Authenticated and [facility]
[2022-10-04 11:20] VITALS: BP 103/75; PULSE 73; RESP 18; TEMP 36.8; O2SAT 100; BMI 18.1
--- NOTE | 2022-10-04 11:24 | XR_ITS ---
FINAL REPORT CLINICAL HISTORY: Left upper arm pain after fall COMPARISON: None FINDINGS: Two views of the left humerus were obtained. There is no acute fracture or dislocation. The joint spaces are well preserved. There is no acute soft tissue abnormality. IMPRESSION: No acute abnormality identified. Reviewed, Interpreted and Dictated by Demetrio Morgan MD Transcribed by Mickie Velez Authenticated and [facility]
--- NOTE | 2022-10-04 11:29 | EXP.UTC ---
Discharge Plan Disposition Patient Disposition: Home, Self-Care Condition: Good Prescriptions Prescriptions: New ibuprofen [ibuprofen] 600 mg tablet 600 mg PO Q6HP PRN (Reason: Mild Pain) Qty: 30 0RF No Action duloxetine [Cymbalta] 30 mg capsule,delayed release(DR/EC) 30 mg PO DAILY Sutab 1.479-0.188- 0.225 gram tablet 24 tab PO PER PKG DIR Qty: 24 0RF Rx Instructions: follow mailed instructions tramadol 50 mg Tablet 50 mg PO Q6H PRN (Reason: Back Pain) raloxifene 60 mg Tablet 60 mg PO DAILY Referrals Follow up/Referrals: Filomena Combs MD [Primary Care Provider] - See instructions Harish Trejo DO [Staff Physician] - See instructions Activity Restrictions/Add. Instructions Additional Instructions/Restrictions: Rest the extremity. Take ibuprofen for pain. I sent in a prescription to your pharmacy. Follow up with Dr. Trejo (orthopedics). I put in a referral but you need to call his office and schedule an appointment. Follow up with your regular doctor. GO TO THE ER FOR ANY WORSENING SYMPTOMS Clinical Impressions Clinical Impression: Contusion of left shoulder, Left shoulder pain, Injury of unspecified nerve at shoulder and upper arm level, left arm, initial encounter Stand Alone Forms Stand Alone Forms: Work/School Release Instructions Patient Instructions: DI for Shoulder Pain Discharge ED Provider: Reggie Monteiro [facility] General Stated complaint: [id number] left shoulder pain Time Seen by Provider: 10/04/22 11:28 History of Present Illness Provider Complaint: She states that 4 days ago, she fell while trying to get in her car for her job. When she fell her left shoulder hit the car. Since then she has had right shoulder and upper arm pain. She states that she has had numbness tingling feeling that radiates down her arm since this injury. She has full range of motion of her shoulder and arm. Related Data Home Medications Medication Instructions Recorded Confirmed duloxetine 30 mg capsule,delayed 30 mg PO DAILY Anxiety 10/01/19 05/27/22 release (Cymbalta) raloxifene 60 mg tablet 60 mg PO DAILY osteopenia 05/24/22 05/27/22 tramadol 50 mg tablet 50 mg PO Q6H PRN Back Pain 05/24/22 05/27/22 Previous Rx's Medication Instructions Recorded sodium sul 1.479 gram-potas ch 24 tab PO PER PKG DIR #24 tabs 05/27/22 0.188 gram-magnes sul 0.225 gram tablet (Sutab) ibuprofen 600 mg tablet 600 mg PO Q6HP PRN Mild Pain #30 10/04/22 tabs Allergies Allergy/AdvReac Type Severity Reaction Status Date / Time No Known Allergies Allergy Unknown Uncoded 03/06/22 15:30 PFSH PFS Disclaimer: The information contained in this section may have been updated after the patient was seen, as this information can be updated by other users. Medical History Abnormal EKG Dizziness Fatigue Pectus excavatum Sinus bradycardia Syncope Tachycardia Tobacco dependence syndrome Surgical History History of back surgery Hx of bilateral oophorectomy Hx of neck surgery Family History Other Family history of CABG Social History Smoking Status: Current some day smoker tobacco type: cigarettes packs per day: 1 pack-years: 14 alcohol intake: current substance use type: denies use current occupational status: employed Travel in the last 8 weeks: Inside the [place] household members: none housing: house lives independently: Yes marital status: education level: college special jaswant needs: No agree to transfusion: No do you feel safe at home: Yes victim of physical abuse: No victim of emotional abuse: No victim of sexual abuse: No would you like helpful sources: No ROS Obtained: Yes All
[2022-10-04 11:41] VITALS: BP 103/75; PULSE 73; RESP 18; TEMP 36.8; O2SAT 100
== END 2022-10-04 12:54 | disposition home or self-care (01) ==
PROVIDERS: Emergency Provider Nurse Practitioner Family; PCP Family Medicine
DX: S44.92XA Injury of unspecified nerve at shoulder and upper arm level, left arm, initial encounter (principal); S40.012A Contusion of left shoulder, initial encounter; M25.512 Pain in left shoulder; R20.2 Paresthesia of skin; F17.210 Nicotine dependence, cigarettes, uncomplicated; V48.4XXA Person boarding or alighting a car injured in noncollision transport accident, initial encounter
CPT/HCPCS: 73030; 73060; 99212; 99214; G0463

== ENCOUNTER 2023-06-15 14:46 | Outpatient (CLI) | payer BC, SELFPAY ==
--- NOTE | 2023-06-15 14:58 | US_ITS ---
PROCEDURE: US TRANSVAGINAL CLINICAL INDICATION: VAGINAL BLEEDING COMPARISON: CT CT ABDOMEN PELVIS W CON from 12/20/2021 FINDINGS: Transvaginal sonographic images of the pelvis were obtained. UTERUS: 5.0cm x 4.0cmx 1.8 cm retroverted with a combined endometrial thickness of 5.5mm. There is an anterior fibroid measuring 1.0 cm x 1.1 cm x 1.4 cm. LEFT OVARY: Surgically absent. RIGHT OVARY: 2.1cmx 0.9 cmx1.2cm with a volume of 1.3ml. Right ovary is seen and appears normal. Doppler flow to both ovaries are seen. There is no fluid in the cul-de-sac. IMPRESSION: 1. Retroverted uterus normal in shape and size. There is a 2. The endometrium is 5.5 mm and appears heterogenous and irregular in appearance. Suggest a gynecology consult. 3. The left ovary has been surgically removed. The right ovary appears atrophic. 4. No fluid in the cul-de-sac. Dictated by: Eliezer Levy MD 06/15/2023 15:59 Eliezer Levy MD in OV 06/15/2023 15:59
== END 2023-06-15 23:59 | disposition home or self-care (01) ==
LOC: RAD 14:48
PROVIDERS: PCP Family Medicine; Visit Provider Physician Assistant
DX: N93.9 Abnormal uterine and vaginal bleeding, unspecified (principal)
CPT/HCPCS: 76830

== ENCOUNTER 2023-10-10 08:58 | Outpatient (CLI) | payer BC, SELFPAY ==
[2023-10-10 09:20] LABS: Basophils # 0.1 K/mm3 (0-0.2); Basophils % 1.2 % (0.1-2.0); Eosinophils # 0.2 K/mm3 (0.0-0.4); Hematocrit 42.4 % (37.0-47.0); Hemoglobin 13.1 g/dL (12.2-16.2); Lymphocytes # 2.8 K/mm3 (0.7-4.5); Lymphocytes % 35.6 % (10-50); Mean Corpuscular HGB Conc 30.8 g/dL (31.8-35.4); Mean Corpuscular Hemoglobin 30.7 pg (27.0-31.2); Mean Corpuscular Volume 99.6 fl (81-99); Mean Platelet Volume 7.9 fl (7.4-10.4); Monocytes # 0.4 K/mm3 (0.1-1.0); Monocytes % 5.3 % (1.7-9.3); Neutrophils # 4.4 K/mm3 (1.8-7.8); Neutrophils % 54.8 % (37.0-80.0); Platelet Count 480 K/mm3 (142-424); Red Blood Count 4.26 M/mm3 (4.20-5.40); Red Cell Distribution Width 12.7 % (11.5-17.5); White Blood Count 7.9 K/mm3 (4.8-10.8)
[2023-10-10 10:06] LABS: Albumin Level 3.8 g/dl (3.5-5.0); Chloride 107 mmol/L (98-107)
[2023-10-10 10:07] LABS: Potassium 4.2 mmoL/L (3.5-5.1); Sodium 138 mmol/L (136-145)
[2023-10-10 10:09] LABS: Alanine Aminotransferase 17 U/L (12-78); Alkaline Phosphatase 73 U/L (38-126); Anion Gap 6.2 mEq/L (5-15); Aspartate Amino Transferase 24 U/L (14-36); Bilirubin,Total 0.7 mg/dl (0.2-1.3); Blood Urea Nitrogen 6 mg/dl (7-17); Carbon Dioxide 29 mmol/L (22.0-30.0); Estimated Glomerular Filt Rate 85 ml/min (>60); GFR (African American) 103 ML/MIN (>60)
[2023-10-10 10:10] LABS: Albumin/Globulin Ratio 1.4 (1.1-1.8); Calcium 8.9 mg/dl (8.4-10.2); Globulin 2.8 g/dL (1.3-3.2); Glucose 92 mg/dl (74-100); Total Protein,Serum 6.6 g/dl (6.3-8.2)
[2023-10-10 10:26] LABS: HCG,Quantitative 3 mIU/ml (0-5.42)
== END 2023-10-10 23:59 | disposition home or self-care (01) ==
LOC: LAB 08:59
PROVIDERS: PCP Family Medicine; Visit Provider Obstetrics & Gynecology
DX: D25.9 Leiomyoma of uterus, unspecified (principal); Z34.90 Encounter for supervision of normal pregnancy, unspecified, unspecified trimester
CPT/HCPCS: 36415; 80053; 84702; 85025; 86850

== ENCOUNTER 2023-11-23 13:58 | Outpatient (CLI) | payer BC, SELFPAY ==
[2023-11-23 14:24] LABS: Basophils # 0.1 K/mm3 (0-0.2); Basophils % 1.2 % (0.1-2.0); Eosinophils # 0.3 K/mm3 (0.0-0.4); Eosinophils % 3.5 % (0.1-12.0); Hematocrit 41.6 % (37.0-47.0); Hemoglobin 13.9 g/dL (12.2-16.2); Lymphocytes % 41.2 % (10-50); Mean Corpuscular HGB Conc 33.3 g/dL (31.8-35.4); Mean Corpuscular Hemoglobin 31.2 pg (27.0-31.2); Mean Corpuscular Volume 93.7 fl (81-99); Mean Platelet Volume 7.5 fl (7.4-10.4); Monocytes # 0.4 K/mm3 (0.1-1.0); Monocytes % 5.8 % (1.7-9.3); Neutrophils # 3.6 K/mm3 (1.8-7.8); Neutrophils % 48.4 % (37.0-80.0); Platelet Count 360 K/mm3 (142-424); Red Blood Count 4.44 M/mm3 (4.20-5.40); Red Cell Distribution Width 12.5 % (11.5-17.5); White Blood Count 7.4 K/mm3 (4.8-10.8)
[2023-11-23 14:32] LABS: Albumin Level 4.2 g/dl (3.5-5.0); Chloride 105 mmol/L (98-107); Potassium 3.7 mmoL/L (3.5-5.1); Sodium 136 mmol/L (136-145)
[2023-11-23 14:35] LABS: Alanine Aminotransferase 17 U/L (12-78); Alkaline Phosphatase 61 U/L (38-126); Anion Gap 6.7 mEq/L (5-15); Aspartate Amino Transferase 26 U/L (14-36); Bilirubin,Total 0.4 mg/dl (0.2-1.3); Blood Urea Nitrogen 13 mg/dl (7-17); Carbon Dioxide 28 mmol/L (22.0-30.0); Estimated Glomerular Filt Rate 85 ml/min (>60); GFR (African American) 103 ML/MIN (>60)
[2023-11-23 14:36] LABS: Albumin/Globulin Ratio 1.4 (1.1-1.8); Calcium 9.3 mg/dl (8.4-10.2); Glucose 96 mg/dl (74-100); Magnesium 1.9 mg/dl (1.6-2.3); Total Protein,Serum 7.2 g/dl (6.3-8.2)
[2023-11-23 15:08] LABS: Thyroid Stimulating Hormone 0.77 uIU/mL (0.465-4.68)
[2023-11-23 15:12] LABS: Ferritin 25.2 ng/ml (11.1-264)
[2023-11-23 15:24] LABS: 25-OH Vitamin D, Total 23.1 ng/mL (30-100)
[2023-11-23 15:25] LABS: Free T4 (Free Thyroxine) 1.13 ng/dl (0.78-2.19)
[2023-11-23 19:32] LABS: Vitamin B12 377 pg/mL (239-931)
[2023-11-24 10:14] LABS: Triiodothyronine (T3) Total 102 ng/dL (71-180)
== END 2023-11-23 23:59 | disposition home or self-care (01) ==
PROVIDERS: PCP Family Medicine; Visit Provider Obstetrics & Gynecology
DX: R53.83 Other fatigue (principal); Z48.89 Encounter for other specified surgical aftercare
CPT/HCPCS: 36415; 80050; 80053; 82306; 82607; 82728; 82746; 83735; 84439; 84443; 84480; 85025

== ENCOUNTER 2023-12-13 14:35 | Outpatient (CLI) | payer BC, SELFPAY ==
--- NOTE | 2023-12-13 14:35 | US_ITS ---
FINAL REPORT CLINICAL HISTORY: F/U NODULES COMPARISON: 05/07/2022 FINDINGS: Sonographic images of the thyroid gland were obtained. The right thyroid lobe measures 52 mm. in length. The left thyroid lobe measures 53 mm. in length. The thyroid isthmus measures 2 mm. The echogenicity is normal. Multiple bilateral thyroid nodules are present. The prominent nodule in the right lobe of the thyroid measures 11 x 5 x 7 mm in size, cystic and solid, isoechoic, a TI-RADS category 2 nodule. This is unchanged since the prior exam. The largest nodule is on the left side, measures 22 x 12 x 16 mm in size, mostly solid and isoechoic, a TI-RADS category 3 nodule. This nodule is also stable when compared to the prior exam. IMPRESSION: Stable bilateral thyroid nodules, recommend 12-month follow-up. Reviewed, Interpreted and Dictated by Edwin Zarco III, MD Transcribed by Nidhi Angela Authenticated and [facility]
== END 2023-12-13 23:59 | disposition home or self-care (01) ==
LOC: RAD 14:35
PROVIDERS: PCP Family Medicine; Visit Provider Obstetrics & Gynecology
DX: E04.1 Nontoxic single thyroid nodule (principal)
CPT/HCPCS: 76536

== ENCOUNTER 2024-07-10 09:12 | Outpatient (CLI) | payer BC, SELFPAY ==
--- NOTE | 2024-07-10 09:16 | MM_ITS ---
PROCEDURE INFORMATION: Exam: MG Bilateral Screening 3D Mammography Exam date and time: 07/10/2024 9:47 AM Age: 64 years old Clinical indication: Screening examination TECHNIQUE: Imaging protocol: Bilateral Screening tomosynthesis and 2D mammography including computer-aided detection (CAD) when performed. COMPARISON: 1. MG MM DIG SC MAMM IMPLANT BI CAD 02/08/2022 2:26 PM 2. MG DMSI DIG MAMM-SCREEN IMPLANT W/CAD 05/12/2016 4:44 PM FINDINGS: MAMMOGRAPHY: Breast composition: The breasts are heterogeneously dense, which may obscure small masses. Mass: None. Architectural distortion: None. Calcifications: No suspicious calcifications. Asymmetric density: None. Skin thickening: None. Axillary adenopathy: None. Implants: Subpectoral saline breast implants are present. IMPRESSION: No mammographic evidence of malignancy. Annual screening is recommended unless otherwise clinically indicated. ASSESSMENT: BI-RADS 1, Negative.
--- NOTE | 2024-07-10 09:16 | XR_ITS ---
FINAL REPORT TECHNIQUE: Bone densitometry calculations of the lumbar spine and bilateral hips were obtained. CLINICAL HISTORY: post menopausal COMPARISON: 03/30/2022 FINDINGS: Using L1-4, the bone mineral density of the spine is 1.005 g/cm2, corresponding to T-score of -0.4 and a Z score of 1.2. This is within the range of normal. Using the left hip, the bone mineral density of the femoral neck is 0.558 g/cm2, corresponding to a T-score of -2.6 and a Z-score of -1.2. This is within the range of osteoporosis. Using the right hip, the bone mineral density of the femoral neck is 0.547 g/cm?, corresponding to a T-score of -2.7 and a Z-score of -1.3. This is within the range of osteoporosis. NOTE: T-score: Standard deviation compared with peak bone mass of young adult mean. *Following the recommendations of the International Society of Bone densitometry, classification of hip BMD is based on the lower of two T-scores; total hip or femoral neck. IMPRESSION: 1. Bone mineral density of the lumbar spine within the range of normal. 2. Bone mineral density of the bilateral femoral necks within the range of osteoporosis. Reviewed, Interpreted and Dictated by Denice aSnchez MD Transcribed by Nidhi Angela Authenticated and [facility]
--- NOTE | 2024-07-10 09:18 | CT_ITS ---
FINAL REPORT TECHNIQUE: Thin section axial images were obtained through the lungs using a low-dose technique per lung cancer screening protocol. Reconstruction images were obtained using the axial data. Exam was performed using dose reduction technique. This study was performed with techniques to keep radiation doses as low as reasonably achievable (ALARA). Individualized dose reduction techniques using automated exposure control or adjustment of mA and/or kV according to the patient's size were employed. CLINICAL HISTORY: SCREENING smoker, 1 ppd x 14 years COMPARISON: 03/30/2022 FINDINGS: CTDLvol: 2.90 DLP: 114.38 Current smoker 14 pack year history Lungs: No acute pulmonary abnormality. There is a new 2 to 3 mm left lower lobe nodule best seen on image #38 of series 4. There is also a new 3 mm left upper lobe nodule seen on image #42 of series 4. There are several additional 4 mm or smaller left upper lobe nodules present. There is a stable left lower lobe nodule seen on image #78. There are also a stable right lower lobe subcentimeter nodules on images #68 and 62. There are 2 new right upper lobe nodules, 1 measuring 4 mm on image #27, the other measuring 4 mm on image 41. Lymph nodes: No thoracic lymphadenopathy. Mediastinum: Heart size is normal. Pleura/pericardium: No pleural effusion. A small pericardial effusion is identified, stable. Other: Left thyroid nodule noted on the previous exam remains stable in appearance. IMPRESSION: Multiple new bilateral 4 mm or smaller pulmonary nodules, that may represent infection or inflammatory change, although metastases are not excluded. Lung RADS: 0 Recommendation: 3-month follow-up chest CT. Reviewed, Interpreted and Dictated by Denice Sanchez MD Transcribed by Nidhi Angela Authenticated and [facility]
== END 2024-07-10 23:59 | disposition home or self-care (01) ==
LOC: RAD 09:13
PROVIDERS: PCP Nurse Practitioner Family; Visit Provider Nurse Practitioner Family
DX: Z12.31 Encounter for screening mammogram for malignant neoplasm of breast (principal); Z13.820 Encounter for screening for osteoporosis; R92.333 Mammographic heterogeneous density, bilateral breasts; M81.0 Age-related osteoporosis without current pathological fracture; Z12.2 Encounter for screening for malignant neoplasm of respiratory organs; R91.8 Other nonspecific abnormal finding of lung field; I31.39 Other pericardial effusion (noninflammatory); F17.210 Nicotine dependence, cigarettes, uncomplicated
CPT/HCPCS: 71271; 77063; 77067; 77080

== ENCOUNTER 2024-10-03 10:14 | Day surgery (SDC) | payer BC, SELFPAY ==
[2024-10-02 14:22] VITALS: BMI 19.0
--- NOTE | 2024-10-02 17:13 | EXP.HP ---
History of Present Illness *Admission Date: 10/03/24 *Reason for visit:: Screening for colon cancer *History of present illness: Mrs. Newman is a 64-year-old female who is here for screening colonoscopy. Her last colonoscopy was more than 10 years ago. The examination is deemed medically necessary for screening colonoscopy. The patient has been seen, interviewed and examined prior to the procedure by both myself and the anesthesia provider. [facility] Disclaimer: The information contained in this section may have been updated after the patient was seen, as this information can be updated by other users. Medical History Cervical radiculopathy Injury of unspecified nerve at shoulder and upper arm level, left arm, initial encounter Left shoulder pain History of rheumatic fever History of cardiac murmur Pectus excavatum Sinus bradycardia Dizziness Fatigue Tobacco dependence syndrome Abnormal EKG Syncope Tachycardia Surgical History History of LAVH with right salpingo-oophorectomy History of left oophorectomy History of back surgery Hx of neck surgery burn nerves Family History Other Family history of CABG Family history of myocardial infarction Social History (Updated 10/03/24 @ 11:03 by Merly Major RN) Smoking Status: Current every day smoker tobacco type: cigarettes packs per day: 1 pack-years: 14 alcohol intake: never substance use type: denies use current occupational status: employed Travel in the last 8 weeks?: None household members: none housing: house lives independently: Yes marital status: education level: college caffeine: Yes special jaswant needs: No agree to transfusion: No do you feel safe at home: Yes victim of physical abuse: No victim of emotional abuse: No victim of sexual abuse: No would you like helpful sources: No Have you lived/traveled outside [place] in past 30 days?: No Contact w/someone who lives/traveled outside [place] past 30 days?: No Exposure to someone with infectious disease in past 14 days?: No Do you have a fever (greater than 100.4 F or 38 C)?: No Have you tested positive for COVID-19?: No Exposed to someone with COVID-19 in past 14 days?: No Do you have a sore throat?: No Do you have a cough?: No Do you have any weakness?: No Are you experiencing any nausea/vomitting?: No Do you have any diarrhea?: No Are you experiencing any unusual bleeding?: No Do you have any muscle aches/pain?: No Do you have any abdominal pain?: No Are you experiencing loss of taste or smell?: No Other Medical History Have you received the Flu Vaccine for this season: No Have you received the Pneumonia Vaccine: No Review of Systems Review of Systems Review of systems (narrative): Negative *Cardiovascular Comments: Negative *Gastrointestinal Comments: Negative *Genitourinary Comments: Negative *Musculoskeletal Comments: Negative *Neurologic Comments: Negative Meds Home Medications and Allergies Home Medications ?Medication ?Instructions ?Recorded ?Confirmed ?Type raloxifene 60 mg tablet 60 mg PO DAILY 05/24/22 10/03/24 History duloxetine 60 mg capsule,delayed 60 mg PO DAILY 06/21/23 10/03/24 History release sodium sul 1.479 gram-potas ch See Rx Instructions PO PER PKG DIR 09/19/24 10/02/24 Rx 0.188 gram-magnes sul 0.225 gram colonscopy #24 tabs tablet (Sutab) New Prescriptions to Start Prescriptions: Allergies Allergy/AdvReac Type Severity Reaction Status Date / Time No Known Allergies Allergy Verified 10/03/24 11:00 Exam Data for Last 24 hours I & O for Last 24 hours: Intake & Output 09/29/24 09/30/24 10/01/24 10/02/24 23:59 23:59 23:59 23:59 Weight 118 lb *Routine HEENT Exam Head: Present normocephalic Eye: Present EOMI and PERRL ENT: Present mucous membranes moist *Routine Neck Exam Neck: Present supple *Routine Respiratory Exam Respiratory: Present CTA bilaterally *Routine Cardiovascular Exam Cardiovascular: Present RRR *Routine Abdominal Exam Abdominal: Present soft and normoactive bowel sounds; Absent tenderness *Routine Rectal Exam Rectal:: deferred *Routine Genitalia Exam Genitalia:: deferred *Routine Extremities Exam Extremities: Absent cyanosis, clubbing or edema *Routine Skin Exam Skin: Present warm; Absent rash *Routine Neurological Exam Neurological: Present alert and oriented X3 Assessment and Plan *Assessment and plan (1) Screening for colon cancer: Status: Acute Category: Medical Code(s): Z12.11 - Encounter for screening for malignant neoplasm of colon Plan A/P: 1. Screening for colon cancer is the preprocedural diagnosis. The patient will be anesthetized/sedated using MAC sedation. The patient has been seen and examined. Cardiac and lung assessment prior to the examination is stable. Proceed with planned screening colonoscopy.
[2024-10-03 11:02] VITALS: BP 106/55; PULSE 67; RESP 18; TEMP 36.2; O2SAT 99; BMI 19.0
[2024-10-03] MEDS: LACTATED RINGERS 1000ML 1,000 ML 50 ML IV (11:12)
--- NOTE | 2024-10-03 11:16 | EXP.ANES.CKL ---
[facility] Disclaimer: The information contained in this section may have been updated after the patient was seen, as this information can be updated by other users. Medical History Cervical radiculopathy Injury of unspecified nerve at shoulder and upper arm level, left arm, initial encounter Left shoulder pain History of rheumatic fever History of cardiac murmur Pectus excavatum Sinus bradycardia Dizziness Fatigue Tobacco dependence syndrome Abnormal EKG Syncope Tachycardia Surgical History History of LAVH with right salpingo-oophorectomy History of left oophorectomy History of back surgery Hx of neck surgery burn nerves Family History Other Family history of CABG Family history of myocardial infarction Social History (Updated 10/03/24 @ 11:03 by Merly Major RN) Smoking Status: Current every day smoker tobacco type: cigarettes packs per day: 1 pack-years: 14 alcohol intake: never substance use type: denies use current occupational status: employed Travel in the last 8 weeks?: None household members: none housing: house lives independently: Yes marital status: education level: college caffeine: Yes special jaswant needs: No agree to transfusion: No do you feel safe at home: Yes victim of physical abuse: No victim of emotional abuse: No victim of sexual abuse: No would you like helpful sources: No Have you lived/traveled outside [place] in past 30 days?: No Contact w/someone who lives/traveled outside [place] past 30 days?: No Exposure to someone with infectious disease in past 14 days?: No Do you have a fever (greater than 100.4 F or 38 C)?: No Have you tested positive for COVID-19?: No Exposed to someone with COVID-19 in past 14 days?: No Do you have a sore throat?: No Do you have a cough?: No Do you have any weakness?: No Are you experiencing any nausea/vomitting?: No Do you have any diarrhea?: No Are you experiencing any unusual bleeding?: No Do you have any muscle aches/pain?: No Do you have any abdominal pain?: No Are you experiencing loss of taste or smell?: No [facility] Anesthesia Checklist Patient Identification Patient Identification: Arm Band Structural Data Admitted From: Home Planned Operative Procedure/s: Colonoscopy Consent for Planned Operative Procedure(s) Verified: Yes Verified Documents: Surgical Consent and History and Physical NPO Status Verified Time NPO: 00:00 Additional verifications Anesthesia Reactions: No Hx Blood Transfusions: No Blood Transfusion Reaction: No Airway Assessment Mallampati Score:: Class II C-Spine Mobility Assessed: Yes TMJ Mobility Assessed: Yes Dentition: Good Dentition Neurological Assessment Level of Consciousness: Awake, Alert and Appropriate Anesthesia Plan Anesthesia Risk discussed: Yes Anesthesia Plan: Verified ASA Class: II Anesthesia Type: MAC
--- NOTE | 2024-10-03 11:47 | P.PCN_ITS ---
[facility] Procedure Note Date: 10/03/24 Time: 12:09 Procedure Note:: Colonoscopy Procedure Report: Colonoscopy with cold snare polypectomy Endoscopist: Garfield Valdez II, MD Referring physician: Catarino Combs MD Date of Procedure: October 03, 2024 Equipment: Olympus [id number] adult colonoscope Sedation: MAC sedation Indication: Mrs. Newman is a 64-year-old female who is here for follow-up screening/surveillance colonoscopy. Her last colonoscopy was more than 10 years ago. She reports no abdominal pain, weight loss, change in her bowel habits or rectal bleeding. She reports no family history of colon cancer. Procedure: Prior to the procedure, a history and physical exam was performed, and patient's medications and allergies were reviewed. The risks, benefits and alternatives of the sedation and procedure were discussed with the patient. All questions were answered and informed consent was obtained. The patient was brought to the procedure room. Patient identification and proposed procedure were verified by the physician and the nurse. The patient was placed in a left lateral decubitus position and the scope was passed under direct vision. Throughout the procedure, the patient's blood pressure, pulse, and oxygen saturations were monitored continuously. The colonoscopy was accomplished without difficulty. The patient tolerated the procedure well. Findings: On digital rectal examination there was normal rectal tone. There were no external hemorrhoids. The colonoscope was introduced through the anal canal to the rectum and advanced to the cecum. The ileocecal valve and appendiceal orifice were identified. The scope was advanced a short distance into the ileum which appeared grossly normal. The scope was then withdrawn into the colon. There were 2 diminutive polyps (descending x 2 (3 and 6 mm)). Both of these were removed via cold snare polypectomy. The remaining cecum, ascending, transverse, descending, sigmoid and rectum were grossly normal. There were no other mucosal abnormalities identified. Upon retroflexion within the rectum there were grade 1 internal hemorrhoids. The preparation was excellent throughout with Austell Preparation Score of 9. The cecal time was 12 minutes. Impression: 1. Diminutive descending colon polyps x 2 Plan: I will follow-up the polyp histology and recommend repeat screening/surveillance colonoscopy again in 7 to 10 years based upon the pathology.
[2024-10-03 12:10] VITALS: BP 96/54; PULSE 85; RESP 14; TEMP 36.3; O2SAT 98
[2024-10-03 12:20] VITALS: BP 97/57; PULSE 76; RESP 16; TEMP 36.3; O2SAT 100
[2024-10-03 12:30] VITALS: BP 105/66; PULSE 73; RESP 17; TEMP 36.3; O2SAT 100
[2024-10-03 12:39] VITALS: BP 101/64; PULSE 80; RESP 18; TEMP 36.3; O2SAT 98
== END 2024-10-03 12:41 | disposition home or self-care (01) ==
PROVIDERS: PCP Family Medicine; Visit Provider Internal Medicine Gastroenterology
PROC: 0DJD8ZZ Inspection of Lower Intestinal Tract, Via Natural or Artificial Opening Endoscopic (ICD-10-PCS; CPT 45378; principal; 2024-10-03 12:00)
DX: Z12.11 Encounter for screening for malignant neoplasm of colon (principal); K64.0 First degree hemorrhoids; K63.5 Polyp of colon; F17.210 Nicotine dependence, cigarettes, uncomplicated; M54.12 Radiculopathy, cervical region; Z90.79 Acquired absence of other genital organ(s); Z90.722 Acquired absence of ovaries, bilateral; Z79.899 Other long term (current) drug therapy
CPT/HCPCS: 45385; J2003; J2704; J7120